=== PATIENT | male | born 1995 | race Two or more races ===

== ENCOUNTER 2024-03-05 08:22 | Emergency (ER) | payer OTHER ==
[2024-03-05] MEDS: Lidocaine 1% 5 ML VIAL INJECT ONE (09:00)
[2024-03-05] MEDS: Diphtheria,Pertussis(Acell),Tetanus Vaccine 0.5 ML Syringe IM ONE (09:44)
[2024-03-05] MEDS: Cephalexin 500 MG Cap PO ONE (09:44)
[2024-03-05] MEDS: Bacitracin Oint 1 GM U/D Packet TOP ONE (09:56)
== END 2024-03-05 10:02 | disposition home or self-care (01) ==
LOC: MW.ED 08:22
DX: S61.412A Laceration without foreign body of left hand, initial encounter (principal); K21.9 Gastro-esophageal reflux disease without esophagitis; Z23 Encounter for immunization; Z79.899 Other long term (current) drug therapy; Z75.8 Other problems related to medical facilities and other health care; W19.XXXA Unspecified fall, initial encounter; Y92.812 Truck as the place of occurrence of the external cause
CPT/HCPCS: 12002; 90471; 90715; 99283; A9270; J3490